=== PATIENT | female | born 1935 | race Caucasian/White ===

== ENCOUNTER 2017-03-31 08:13 | Emergency (ER) | payer MEDICARE, BC, MEDICAID ==
[2017-03-31 08:44] LABS: BASOPHILS 0.3 % (0-2); EOSINOPHILS 3.6 % (0-7); HEMATOCRIT 42.3 % (36.0-48.0); HEMOGLOBIN 13.8 g/dL (12-16); IMMATURE GRANULOCYTES 0.2 % (0-5); MCH 29.9 pg (26.0-34.0); MCHC 32.6 g/dL (31.0-37.0); MCV 91.8 fL (80.0-100.0); MEAN PLATELET VOLUME 10.7 fL (7.4-10.4); MONOCYTES 7.8 % (2-11); NEUTROPHILS 66.1 % (40-80); PLATELET COUNT 218 10x3/uL (130-400); RBC 4.61 10x6/uL (4.00-5.40); RDW 14.1 % (11.5-14.5); WBC 6.6 10x3/uL (4.8-10.8)
[2017-03-31 08:57] LABS: ALBUMIN 4.1 g/dL (3.4-5.0); ANION GAP 9.8 mmol/L (8-16); APTT 30.7 SECONDS (22.8-39.4); BILIRUBIN - TOTAL 0.21 mg/dL (0.2-1.3); CALCIUM 9.5 mg/dL (8.5-10.1); CARBON DIOXIDE 29.5 mmol/L (21.0-32.0); CREATININE - SERUM 0.8 mg/dL (0.6-1.3); INR 0.97 (0.85-1.17); POTASSIUM - SERUM 4.3 mmol/L (3.5-5.1); PROTEIN - SERUM 7.7 g/dL (6.4-8.2); PROTIME 12.5 SECONDS (11.6-15.0)
== END 2017-03-31 10:46 | disposition home or self-care (01) ==
LOC: D.ER 08:13
PROVIDERS: Family Medicine
DX: G45.9 Transient cerebral ischemic attack, unspecified (principal); R41.82 Altered mental status, unspecified; R51 Headache; R26.2 Difficulty in walking, not elsewhere classified; I10 Essential (primary) hypertension; M25.522 Pain in left elbow

== ENCOUNTER → 2017-09-18 14:24 | Outpatient (CLI) | payer MEDICARE, BC, MEDICAID | END | disposition home or self-care (01) | LOC: D.CT 14:24 | DX: M79.605 Pain in left leg (principal); M79.604 Pain in right leg ==